=== PATIENT | male | born 1980 | race Caucasian/White ===

== ENCOUNTER 2022-04-23 13:14 | Emergency (ER) | payer BC ==
--- OUTSIDE RECORDS SUMMARY | 2022-04-23 13:18 | XMS REPORT | Continuity of Care Document ---
:1980 Author Organization [facility] t Address [address] [place] [address] Care Team Providers Name Role Phone David Yu MD Primary Care Physician Doctor Unassigned, [place] Attending Clinician Unavailable David Yu MD Attending Clinician Payers Payer Name Policy Type Policy Number Effective Date Expiration Date S ource Problems Condition Condition Condition Status Onset Resolution Last Treating Co mments Source Name Details Category Date Date Treatment Clinician Date Tonsilliti Tonsilliti Disease Active U nivers s s 01-02 ity of 00:00: [place] [facility] Pharyngiti Pharyngiti Disease Active U nivers s s 01-02 ity of 00:00: [address] Attention Attention Disease Active Uni vers deficit deficit 3- ity of 00:00: [address] Allergies, Adverse Reactions, Alerts This patient has no known allergies or adverse reactions. Social History Social Habit Start Date Stop Date Quantity Comments Source Exposure to 2022-01-10 2022-01-20 Not sure [facility] SARS-CoV-2 00:00:00 09:35:00 [facility] (event) [place] Alcohol intake 2020-03-19 2020-03-19 3 /d [facility] 00:00:00 00:00:00 [facility] Tobacco use and 2016-01-03 2016-01-03 Smokeless tobacco Un iversity of exposure 00:00:00 00:00:00 non-user [facility] Sex Assigned At [birth year] Universit y of 00:00:00 00:00:00 [facility] Smoking Status Start Date Stop Date Source Never smoked tobacco [facility] Medications Ordered Filled Start Stop Current Ordering Indication Dosage Frequency Signature Comments Components Source Medication Medication Date Date Medication? Clinician (SIG) Name Name osmni Yes [id number] 27mg Take 1 Univers date HCl 27 9-01 tablet by ity of mg 24 hr 00:00: mouth [place] tablet 00 every Medical morning. [place] methylpheni Yes [id number] 27mg Take 1 Univers date HCl 27 8-01 tablet by ity of mg 24 hr 00:00: mouth [place] tablet 00 every Medical morning. [place] methylpheni 2021- No [id number] 27mg Take 1 Univers date HCl 27 8-01 08-31 tablet by it y of mg 24 hr 00:00: 00:00 mouth [place] tablet 00 :00 every Medical morning. [place] lisdexamfet Yes [id number] 30mg Take 1 Univers amine 6-27 capsule by ity of (VYVANSE) 00:00: mouth [place] 30 mg 00 every Medical capsule morning. [place] methylpheni Yes [id number] 27mg Take 1 Univers date HCl 27 6-27 tablet by ity of mg 24 hr 00:00: mouth [place] tablet 00 every Medical morning. [place] methylpheni 2021- No [id number] 27mg Take 1 Univers date HCl 27 6-27 08- tablet by it y of mg 24 hr 00:00: 00:00 mouth [place] tablet 00 :00 every Medical morning. [place] lisdexamfet 2021- No [id number] 30mg Take 1 Univers amine 6-27 06-27 capsule by ity of (VYVANSE) 00:00: 00:00 mouth [place] 30 mg 00 :00 every Medical capsule morning. [place] escitalopra Yes 20mg Take 20 mg Univers m oxalate -09 by mouth ity of 20 mg 00:00: daily. [place] tablet 00 [facility] naltrexone Yes 50mg Take 50 mg U nivers 50 mg 6-09 by mouth ity of tablet 00:00: daily. [place] 00 [facility] escitalopra 2021- Yes 20mg Take 20 mg Univers m oxalate 6-09 by mouth ity of 20 mg 00:00: daily. [place] tablet [facility] naltrexone Yes 50mg Take 50 mg U nivers 50 mg 01-02 by mouth ity of tablet 00:00: daily. [place] [facility] escitalopra Yes 20mg Take 20 mg Univers m oxalate 01-02 by mouth ity of 20 mg 00:00: daily. [place] tablet [facility] naltrexone Yes 50mg Take 50 mg U nivers 50 mg 01-02 by mouth ity of tablet 00:00: daily. [place] [facility] escitalopra Yes 20mg Take 20 mg Univers m oxalate 01-02 by mouth ity of 20 mg 00:00: daily. [place] tablet [facility] naltrexone Yes 50mg Take 50 mg U nivers 50 mg 01-02 by mouth ity of tablet 00:00: daily. [place] [facility] ezetimibe-s 2021- No 1{tbl} Take 1 U nivers imvastatin 10-17 tablet by ity of 10-20 10-20 00:00: 00:[place] mg tablet 00 :00 daily. [facility] testosteron Yes testostero Univers e cypionate 3-16 ne ity of 200 mg/mL 07:15: cypionate [place] injection 05 200 mg/mL Medic al intramuscu Branch lar oil variable dosing. see plan testosteron Yes testostero Univers e cypionate 3-16 ne ity of 200 mg/mL 07:15: cypionate [place] injection 05 200 mg/mL Medic al intramuscu Branch lar oil variable dosing. see plan testosteron Yes testostero Univers e cypionate 3-16 ne ity of 200 mg/mL 07:15: cypionate [place] injection 05 200 mg/mL Medic al intramuscu Branch lar oil variable dosing. see plan testosteron Yes testostero Univers e cypionate 3-16 ne ity of 200 mg/mL 07:15: cypionate [place] as injection 05 200 mg/mL Medic al intramuscu Branch lar oil variable dosing. see plan atomoxetine 2021- No [id number] 40mg Take 1 Univers (STRATTERA) 10-09 capsule by i ty of 40 mg 00:00: 00:00 mouth [place] capsule 00 :00 daily. Medical Branch neomycin-po 2017-0 2021- No 3[drp] Place 3 Univers lymyxin-hyd 02-17 Drops in ity of rocortisone 00:00: 00:00 right ear [place] otic 00 :00 4 (four) Medical solution times Branch daily. Vital Signs Vital Name Observation Time Observation Value Comments Source Systolic blood 2022-01-20 14:34:00 133 mm[Hg] Univer sity [facility] pressure [facility] Diastolic blood 2022-01-20 14:34:00 88 mm[Hg] Unive rsity [facility] Heart rate 2022-01-20 14:33:00 65 /min [facility] Body height 2022-01-20 14:33:00 172.7 cm [facility] Body weight 2022-01-20 14:33:00 87.454 kg [facility] BMI 2022-01-20 14:33:00 29.32 kg/m2 [facility] Oxygen saturation 2022-01-20 14:33:00 97 /min [facility] in Arterial blood Medical Br anch by Pulse oximetry Procedures This patient has no known procedures. Encounters Start End Encounter Admission Attending Care Care Encounter Source Date/Time Date/Time Type Type Clinicians Facility Department ID 2022-03-26 2022-03-26 Refill Doctor [facility] [id number] Univers 00:00:00 00:00:00 Unassigned, HEALTH [id number] ity of [place] [id number] [place] as ISAIAS?BLEA [id number] [address] MEDICAL OFFICE BUILDING 2022-02-24 2022-02-24 Refill Doctor [facility] [id number] Univers 00:00:00 00:00:00 Unassigned, HEALTH [id number] ity of [place] [id number] [place] as ISAIAS?BLEA [id number] [address] MEDICAL OFFICE BUILDING 2022-01-20 2022-01-20 Office Gigi [facility] [id number] Univers 09:15:00 09:30:00 Visit [employer] [id number] it y of [place] [id number] [place] as ISAIAS?BLEA [id number] [address] OFFICE BUILDING 2022-01-20 2022-01-20 Patient Gigi [facility] [id number] Univers 00:00:00 00:00:00 Secure Msg [facility] [id number] [facility] [id number] [place] ISAIAS?BLEA [phone] [address] OFFICE BUILDING Results This patient has no known results.
[2022-04-23 13:59] LABS: Absolute Lymphocytes (CBC) 1.3 K/uL (0.7-4.9); Hematocrit 44.5 % (39.6-49.0); Lymphocytes % 21.4 % (15.3-44.8); MCV 87.8 fL (80-100); MPV 8.2 fL (7.6-11.3); RBC Red Blood Cell Count 5.06 M/uL (4.33-5.43)
[2022-04-23] MEDS ORDERED: NA CHLORIDE 0.9% 1,000 ML ONE (14:04)
[2022-04-23 14:12] LABS: Albumin 3.9 g/dL (3.4-5.0); Bilirubin Direct 0.3 mg/dL (0-0.2); Bilirubin Total 1.3 mg/dL (0.2-1.0); Magnesium 2.2 mg/dL (1.8-2.4); Potassium 3.9 mmol/L (3.5-5.1); Protein, Total 7.5 g/dL (6.4-8.2); Troponin High Sensitivity 4.6 pg/mL (<58.9)
[2022-04-23 14:16] LABS: Protime INR 1.07
--- NOTE | 2022-04-23 14:48 | RAD REPORT ---
EXAM DESCRIPTION: [facility] Single View04/23/2022 1:46 pm CLINICAL HISTORY: sob COMPARISON: none FINDINGS: The lungs appear clear of acute infiltrate. The heart is normal size IMPRESSION: No acute abnormalities displayed
--- NOTE | 2022-04-23 17:10 | EDPHYS ---
Physician Documentation [facility] Name: Waylon Ramos Age: 41 yrs Sex: Male : 1980 Arrival Date: 04/23/2022 Time: 13:17 Bed 19 Private MD: ED Physician Alexis Escobar HPI: 04/23 13:28 This 41 yrs old Male presents to ER via Ambulatory with complaints of Palpitations, jmm Doesn't Feel Right. 13:28 The patient presents with a history of heart racing. Onset: The symptoms/episode jmm began/occurred today, 1 hour(s) ago. Duration: The patient or guardian reports a single episode, that is still ongoing. Modifying factors: The symptoms are aggravated by nothing. The symptoms are alleviated by nothing. Associated signs and symptoms: Pertinent positives: SOB. The patient has not experienced similar symptoms in the past. This is a 41 year old male with a history of hlp, add that presents to the ED with complaints of palpitations beginning approx 1 hour prior to arrival. Patient was alerted by his smart watch. States drinking coffee earlier this morning. Also states having sob for approx 1 month. . Historical: - Allergies: 13:21 No Known Allergies; iw - Home Meds: 13:21 Ritalin Oral [Active]; iw - PMHx: 13:21 Hypercholesterolemia; ADD; iw - PSHx: 13:21 None; iw - Immunization history:: Client reports having NOT received the Covid vaccine. - Social history:: Smoking status: Patient denies any tobacco usage or history of. Patient uses alcohol, on a daily basis. bottle of wine. ROS: 13:28 Constitutional: Negative for fever, chills, and weight loss. jmm 13:28 Cardiovascular: Positive for palpitations. 13:28 Respiratory: Positive for shortness of breath. 13:28 All other systems are negative. Exam: 13:28 Constitutional: This is a well developed, well nourished patient who is awake, alert, jmm and in no acute distress. Head/Face: atraumatic. Eyes: EOMI, no conjunctival erythema appreciated ENT: Moist Mucus Membranes Neck: Trachea midline, Supple Chest/axilla: Normal chest wall appearance and motion. 13:28 Abdomen/GI: Non distended Back: Normal ROM Skin: General appearance color normal MS/ Extremity: Moves all extremities, no obvious deformities appreciated, no edema noted to the lower extremities Neuro: Awake and alert Psych: Behavior is normal, Mood is normal, Patient is cooperative and pleasant 13:28 Cardiovascular: Rate: tachycardic, Rhythm: regular. 13:28 Respiratory: the patient does not display signs of respiratory distress, Respirations: normal. 13:34 ECG was reviewed by the Attending Physician. [facility] Vital Signs: 13:19 BP 139 / 107; Pulse 105; Resp 18; Temp 98.3; Pulse Ox 98% on R/A; Weight 86.18 kg; iw Height 5 ft. 8 in. (172.72 cm); 15:00 BP 124 / 94; Pulse 92; Resp 18; Pulse Ox 97% ; bp 17:05 BP 116 / 83; Pulse 74; Resp 16; Pulse Ox 99% ; bp 13:19 Body Mass Index 28.89 (86.18 kg, 172.72 cm) iw MDM: 13:25 Patient medically screened. [facility] 17:09 Data reviewed: vital signs, nurses notes. Counseling: I had a detailed discussion with [facility] the patient and/or guardian regarding: the historical points, exam findings, and any diagnostic results supporting the discharge/admit diagnosis, the need for outpatient follow up, to return to the emergency department if symptoms worsen or persist or if there are any questions or concerns that arise at home. 04/23 13:25 Order name: Basic Metabolic Panel; Complete Time: 14:14 [facility] 04/23 13:25 Order name: CBC with Diff; Complete Time: 14:07 [facility] 04/23 13:25 Order name: D-Dimer; Complete Time: 14:17 [facility] 04/23 13:25 Order name: LFT's; Complete Time: 14:14 [facility] 04/23 13:25 Order name: Magnesium; Complete Time: 14:14 [facility] 04/23 13:25 Order name: NT PRO-BNP; Complete Time: 14:14 [facility] 04/23 13:25 Order name: PT-INR; Complete Time: 14:17 [facility] 04/23 13:25 Order name: Troponin HS; Complete Time: 14:14 [facility] 04/23 13:25 Order name: XRAY Chest (1 view); Complete Time: 14:51 [facility] 04/23 13:25 Order name: EKG; Complete Time: 13:26 [facility] 04/23 13:25 Order name: Cardiac monitoring; Complete Time: 14:03 [facility] 04/23 13:25 Order name: EKG - Nurse/Tech; Complete Time: 13:34 [facility] 04/23 16:15 Order name: Troponin High Sensitivity; Complete Time: 17:07 [facility] 04/23 13:25 Order name: IV Saline Lock; Complete Time: : [facility] 04/23 13:25 Order name: Labs collected and sent; Complete Time: [facility] 04/23 13:25 Order name: O2 Per Protocol; Complete Time: [facility] 04/23 13:25 Order name: O2 Sat Monitoring; Complete Time: : [facility] EC:34 Rate is 98 beats/min. Rhythm is regular. QRS [place] is Normal. [place] interval is normal. QRS jmm interval is normal. QT interval is normal. T waves are Flattened in lead III. No ST changes noted. Reviewed by me. Administered Medications: 14:00 Drug: NS 0.9% 1000 ml Route: IV; Rate: 1 bolus; Site: right antecubital; bp Disposition: 18:01 Co-signature as Attending Physician, Alexis Escobar MD. rn Disposition Summary: 04/23/22 17:09 Discharge Ordered Location: Home [facility] Condition: Stable [facility] Diagnosis - Palpitations jmm Followup: jmm - With: Private Physician - When: 2 - 3 days - Reason: Recheck today's complaints, Continuance of care, Re-evaluation by your physician Followup: jm - With: Sea Gee MD - When: 2 - 3 days - Reason: Recheck today's complaints, Continuance of care, Re-evaluation by your physician Discharge Instructions: - Discharge Summary Sheet jmm - Palpitations jmm Forms: - Medication Reconciliation Form jmm - Thank You Letter jmm - Antibiotic Education jmm - School release form jmm - Prescription Opioid Use jm Signatures: Dispatcher [employer] EDJames Arias PA PA jmm Williams, Irene, RN Alexis Moses MD MD rn Peltier, Brian, RN RN bp
--- NOTE | 2022-04-23 17:10 | ER ---
Nurse's Notes [facility] Name: Waylon Ramos Age: 41 yrs Sex: Male : 1980 Arrival Date: 04/23/2022 Time: 13:17 Bed 19 Private MD: Diagnosis: Palpitations Presentation: 04/23 13:19 Chief complaint: Patient states: had a warning on his phone that said his heart rate iw was over 120 for the past hour, started to feel some tightness on left side of chest. Coronavirus screen: At this time, the client does not indicate any symptoms associated with coronavirus-19. Ebola Screen: Patient negative for fever greater than or equal to 101.5 degrees Fahrenheit, and additional compatible Ebola Virus Disease symptoms Patient denies exposure to infectious person. Patient denies travel to an Ebola-affected area in the 21 days before illness onset. No symptoms or risks identified at this time. Initial Sepsis Screen: Does the patient meet any 2 criteria? No. Patient's initial sepsis screen is negative. Does the patient have a suspected source of infection? No. Patient's initial sepsis screen is negative. Risk Assessment: Do you want to hurt yourself or someone else? Patient reports no desire to harm self or others. Onset of symptoms was April 23, 2022. 13:19 Method Of Arrival: Ambulatory iw 13:19 Acuity: LETTY 3 iw Triage Assessment: 13:30 General: Appears in no apparent distress. Behavior is cooperative, appropriate for age, bp anxious. Pain: Denies pain. EENT: No deficits noted. Neuro: No deficits noted. Cardiovascular: Rhythm is sinus tachycardia. Respiratory: No deficits noted. GI: No signs and/or symptoms were reported involving the gastrointestinal system. : No signs and/or symptoms were reported regarding the genitourinary system. Derm: No deficits noted. Musculoskeletal: No deficits noted. Historical: - Allergies: 13:21 No Known Allergies; iw - Home Meds: 13:21 Ritalin Oral [Active]; iw - PMHx: 13:21 Hypercholesterolemia; ADD; iw - PSHx: 13:21 None; iw - Immunization history:: Client reports having NOT received the Covid vaccine. - Social history:: Smoking status: Patient denies any tobacco usage or history of. Patient uses alcohol, on a daily basis. bottle of wine. Screenin:00 Abuse screen: Denies threats or abuse. Denies injuries from another. Nutritional bp screening: No deficits noted. Tuberculosis screening: No symptoms or risk factors identified. Fall Risk None identified. Assessment: 13:30 General: SEE TRIAGE NOTE. bp 15:00 Reassessment: No changes from previously documented assessment. Patient and/or family bp updated on plan of care and expected duration. Pain level reassessed. 16:30 Reassessment: Patient appears in no apparent distress at this time. Patient and/or iw family updated on plan of care and expected duration. Pain level reassessed. Patient is alert, oriented x 3, equal unlabored respirations, skin warm/dry/pink. 17:44 Reassessment: DC HOME AMBULATORY. bp Vital Signs: 13:19 BP 139 / 107; Pulse 105; Resp 18; Temp 98.3; Pulse Ox 98% on R/A; Weight 86.18 kg; iw Height 5 ft. 8 in. (172.72 cm); 15:00 BP 124 / 94; Pulse 92; Resp 18; Pulse Ox 97% ; bp 17:05 BP 116 / 83; Pulse 74; Resp 16; Pulse Ox 99% ; bp 13:19 Body Mass Index 28.89 (86.18 kg, 172.72 cm) iw ED Course: 13:17 Patient arrived in ED. rg4 13:18 James Sorensen PA is PHCP. jmm 13:18 Alexis Escobar MD is Attending Physician. jmm 13:21 Triage completed. iw 13:22 Arm band placed on. iw 13:34 EKG done, by ED staff, reviewed by James FELDMAN. jw7 13:43 Initial lab(s) drawn, by fl, sent to lab. Inserted saline lock: 20 gauge in right iw antecubital area, using aseptic technique. Blood collected. 13:48 XRAY Chest (1 view) In Process Unspecified. EDMS 14:00 Patient has correct armband on for positive identification. Bed in low position. Call bp light in reach. Side rails up X2. 14:03 Cole Molina, POLINA is Primary Nurse. bp 17:14 Sea Gee MD is Referral Physician. jmm 17:44 No provider procedures requiring assistance completed. IV discontinued, intact, bp bleeding controlled, No redness/swelling at site. Pressure dressing applied. Administered Medications: 14:00 Drug: NS 0.9% 1000 ml Route: IV; Rate: 1 bolus; Site: right antecubital; bp Outcome: 17:09 Discharge ordered by . iliana 17:44 Discharged to home ambulatory. bp 17:44 Condition: stable 17:44 Discharge instructions given to patient, Instructed on discharge instructions, follow up and referral plans. Demonstrated understanding of instructions, follow-up care. 17:45 Patient left the ED. bp Signatures: Dispatcher [employer] EDMS James Sorensen PA PA jmm Williams, Irene, RN RN Alfreda Keita rg4 Cole Molina RN RN Nikole Rodriguez jw7
--- NOTE | 2022-04-24 08:29 | EKG ---
Test Date: 2022-04-23 Test Time: 13:27:57 Relationship Mgr: KHUSHI MEASUREMENT RESULTS: Intervals: Rate: 98 AR: 152 QRSD: 80 QT: 318 QTc: 405 [place]: P: 50 AR: 152 QRS: 21 T: 60 INTERPRETIVE STATEMENTS: Normal sinus rhythm Cannot rule out Inferior infarct, age undetermined Abnormal ECG No previous ECG available for comparison Electronically Signed On 04-24-22 08:26:45 CDT by Julien Alvarez
[2022-04-25 10:14] VITALS: TEMP 98.3
[2022-04-25 10:16] VITALS: BP 116/83; O2SAT 99
== END 2022-04-23 17:45 | disposition home or self-care (01) ==
LOC: ER 13:14
DX: R00.2 Palpitations (principal); R06.02 Shortness of breath
CPT/HCPCS: 93005; 85025; 80048; 36415; 83735; 85610; 85379; 80076; 84484 ×2; 83880; 71045; 99284; J7030